=== PATIENT | male | born 1945 | race Caucasian/White ===

== ENCOUNTER → 2018-11-26 | Day surgery (SDC) | payer OTHER ==
--- NOTE | 2018-11-27 15:21 | PATH ---
Cytology Non-Gynecological Report Patient Name: ANNA CLEMENTS [facility]. Rec. #: [id number] /Age/Gender: 1945 (Age: 73) / M Account: [id number] Location: RADIOLOGY INTER Taken: 11/26/2018 Received: 11/26/2018 Reported: 11/27/2018 Physicians: Julissa Pascal M.D. Specimen(s) Received LEFT THYROID FNA Clinical History Left lobe, 2.68 x 1.29 x 1.63 cm Final Diagnosis THYROID, LEFT LOBE, FINE NEEDLE ASPIRATION: SATISFACTORY FOR EVALUATION. B[place] CLASS II: BENIGN. CYTOLOGIC FINDINGS ARE CONSISTENT WITH A BENIGN FOLLICULAR NODULE. FOLLICULAR CELLS WITH FOCAL REACTIVE CHANGES AND ABUNDANT COLLOID PRESENT. Electronically Signed Faith Jaffe M.D. Gross Description Received are eight direct smears, four of which are air-dried and Diff-Quik stained, and four of which are alcohol fixed and Pap stained. Also received is 20 ml of bloody formalin from which one cellblock is prepared.
== END | disposition home or self-care (01) ==
LOC: JRADIR 09:46
PROVIDERS: ATTEND Internal Medicine Endocrinology, Diabetes & Metabolism
PROC: 0G9G3ZX Drainage of Left Thyroid Gland Lobe, Percutaneous Approach, Diagnostic (ICD-10-PCS; principal; 2018-11-26)
DX: E04.1 Nontoxic single thyroid nodule (principal)
CPT/HCPCS: 76942; 88173; 88305-TC

== ENCOUNTER 2021-06-01 01:06 | Inpatient (IN) | payer OTHER ==
[2021-06-01 03:15] LABS: BASO % 0.4 % (0-2.0); EOS % 0.6 % (0-4.5); HEMATOCRIT 33.4 % (35.4-49); HEMOGLOBIN 11.4 GM/dL (11.7-16.9); LYMPH % 10.5 % (8-40); MCH 29.5 pg (25.7-33.7); MCHC 34.1 g/dl (32.0-35.9); MEAN CELL VOLUME 86.5 fl (80-96); MEAN PLT VOLUME 7.1 fl (7.5-11.1); NEUT % 79.5 % (42.8-82.8); PLATELET COUNT 359 10^3/uL (134-434); RBC 3.87 M/mm3 (4.00-5.60); RDW 13.2 % (11.9-15.9)
[2021-06-01 03:29] LABS: CHLORIDE 104 mmol/L (98-107); SODIUM 139 mmol/L (136-145)
[2021-06-01 03:31] LABS: ALBUMIN 3.4 g/dl (3.4-5.0); ANION GAP 9 MMOL/L (8-16); CO2 27 mmol/L (21-32); GLUCOSE,RANDOM 160 mg/dL (74-106)
[2021-06-01 03:32] LABS: BLOOD UREA NITROGEN 21.5 mg/dL (7-18)
[2021-06-01 03:35] LABS: CREATININE 1.4 mg/dL (0.55-1.3); SGOT/AST 17 U/L (15-37); SGPT/ALT 16 U/L (13-61)
[2021-06-01 03:36] LABS: BILIRUBIN,TOTAL 1.1 mg/dL (0.2-1); TOT PROT 7.4 g/dl (6.4-8.2)
[2021-06-01 03:37] LABS: ALK PHOS 75 U/L (45-117)
[2021-06-01] MEDS ORDERED: SODIUM CHLORIDE 0.9% 500 ML INFUS.BAG IV ONE ×2 (04:26→05:41)
[2021-06-01] MEDS ORDERED: PIPERACILLIN/TAZOB 4.5 GM 4.5 GM in DEXTROSE 5%-WATER 100 ML IVPB ONE (06:07)
[2021-06-01] MEDS ORDERED: PIPERACILLIN/TAZOB 4.5 GM 4.5 GM/100 ML BAG IVPB ONE (06:32)
[2021-06-02 03:21] LABS: URINE APPEARANCE CLEAR; URINE BILIRUBIN NEGATIVE (NEGATIVE); URINE COLOR YELLOW; URINE GLUCOSE (UA) NEGATIVE (NEGATIVE); URINE KETONE NEGATIVE (NEGATIVE); URINE LEUK ESTERASE NEGATIVE (NEGATIVE); URINE NITRITE NEGATIVE (NEGATIVE); URINE PROTEIN NEGATIVE (NEGATIVE)
[2021-06-02 05:30] VITALS: BMI 23.8
[2021-06-02 11:50] LABS: BASO % 0.4 % (0-2.0); EOS % 0.8 % (0-4.5); HEMATOCRIT 32.6 % (35.4-49); HEMOGLOBIN 11.2 GM/dL (11.7-16.9); LYMPH % 19.2 % (8-40); MCH 31.7 pg (25.7-33.7); MCHC 34.4 g/dl (32.0-35.9); MEAN CELL VOLUME 92.1 fl (80-96); MEAN PLT VOLUME 7.8 fl (7.5-11.1); NEUT % 69.6 % (42.8-82.8); PLATELET COUNT 393 10^3/uL (134-434); RBC 3.54 M/mm3 (4.00-5.60); RDW 13.3 % (11.9-15.9); WHITE BLOOD COUNT 5.5 K/mm3 (4.0-10.0)
[2021-06-02 12:17] LABS: CALCIUM 9.2 mg/dL (8.5-10.1)
[2021-06-02 12:18] LABS: ALBUMIN 3.3 g/dl (3.4-5.0); BLOOD UREA NITROGEN 21.3 mg/dL (7-18); MAGNESIUM 1.9 mg/dL (1.8-2.4)
[2021-06-02 12:21] LABS: CREATININE 1.2 mg/dL (0.55-1.3)
[2021-06-02 12:22] LABS: BILIRUBIN,TOTAL 1.4 mg/dL (0.2-1)
[2021-06-02 12:23] LABS: TOT PROT 7.3 g/dl (6.4-8.2)
[2021-06-02 14:16] VITALS: BP 138/93; PULSE 98; TEMP 98.4
== END 2021-06-02 19:06 | disposition home or self-care (01) | DRG 204 ==
LOC: JER 01:06 → JERBED 06:22 → J6S 17:56
PROVIDERS: ADMIT Family Medicine; ATTEND Family Medicine
DX: R05.9 Cough, unspecified (principal); I10 Essential (primary) hypertension; E11.9 Type 2 diabetes mellitus without complications; R79.89 Other specified abnormal findings of blood chemistry; N28.1 Cyst of kidney, acquired; E86.0 Dehydration
CPT/HCPCS: 36415; 70491-TC; 71275-TC; 74230-TC-FY; 76775-TC; 80053; 81003; 82550; 82570; 83735; 84156; 84443; 84484; 85025; 85379; 87070; 87651; 87804; 87807; 92611-GN; 93005; 93010; 99285-25; C9803; U0003; U0005